=== PATIENT | male | born 1995 | race Caucasian/White ===

== ENCOUNTER → 2016-11-05 | Outpatient (CLI) | payer SELFPAY ==
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
== END ==
LOC: M ADAMS 11:43
PROVIDERS: ATTEND Physician Assistant Medical
DX: S70.02XA Contusion of left hip, initial encounter (principal); X58.XXXA Exposure to other specified factors, initial encounter; Y92.9 Unspecified place or not applicable

== ENCOUNTER 2019-09-21 01:52 | Emergency (ER) | payer BC ==
[~2019-09-21] VITALS: Ht 182.9 cm; Wt 129.6 kg
[2019-09-21 01:52] VITALS: BP 133/68
[2019-09-21 02:41] LABS: BASO # 0.1 10^3/uL (0.0-0.2); BASO % 0.3 % (0.0-1.0); EOS # 0.2 10^3/uL (0.0-0.5); EOS % 0.8 % (0.0-3.0); HEMATOCRIT 47.7 % (42.0-52.0); HEMOGLOBIN 15.8 g/dl (13.5-17.5); LYMPH # 3.2 10^3/uL (1.5-5.0); MEAN CORPUSCULAR HEMOGLOBIN 28.6 pg (27.0-33.0); MEAN CORPUSCULAR HGB CONC 33.1 g/dl (32.0-36.5); MEAN CORPUSCULAR VOLUME 86.3 fl (80.0-96.0); MONO # 1.4 10^3/uL (0.0-0.8); MONO % 7.3 % (0.0-5.0); NEUTROPHILS # 13.8 10^3/uL (1.5-8.5); PLATELET COUNT, AUTOMATED 300 10^3/uL (150-450); RED BLOOD COUNT 5.53 10^6/uL (4.30-6.10); WHITE BLOOD COUNT 18.6 10^3/uL (4.0-10.0)
[2019-09-21 02:45] LABS: INR 1.07; PROTHROMBIN TIME 13.6 SECONDS (11.8-14.0)
[2019-09-21] MEDS ORDERED: NS 1,000 ML IV ONE (02:45)
[2019-09-21] MEDS ORDERED: TETANUS/DIPHTHERIA TOX ADSORB ADULT 0.5ML SYR/VIAL (90714) IM ONE (02:45)
[2019-09-21] MEDS ORDERED: ceFAZolin SOD 1 GM in D5W MINI-BAG PLUS 50 ML IV ONE (02:45)
[2019-09-21] MEDS ORDERED: MORPHINE 4 MG/ML 1ML VIAL/SYRINGE (J2270) IV ONE (02:45)
[2019-09-21 02:46] LABS: PARTIAL THROMBOPLASTIN TIME 25.8 SECONDS (25.0-38.4)
[2019-09-21 02:55] LABS: BLOOD UREA NITROGEN 13 MG/DL (7-18); CALCIUM LEVEL 8.5 MG/DL (8.5-10.1); CARBON DIOXIDE LEVEL 24 MEQ/L (21-32); CHLORIDE LEVEL 108 MEQ/L (98-107); CREATININE FOR GFR 0.99 MG/DL (0.70-1.30); GLOMERULAR FILTRATION RATE > 60.0 (>60); GLUCOSE, FASTING 128 MG/DL (70-100); SODIUM LEVEL 140 MEQ/L (136-145)
[2019-09-21 02:56] LABS: ALBUMIN 3.9 GM/DL (3.2-5.2); ALT/SGPT 103 U/L (12-78); BILIRUBIN,DIRECT < 0.1 MG/DL (0.0-0.2); BILIRUBIN,TOTAL 0.6 MG/DL (0.2-1.0); LIPASE 174 U/L (73-393); TOTAL PROTEIN 7.8 GM/DL (6.4-8.2)
[2019-09-21] MEDS ORDERED: ISOVUE-370 76% 100ML VIAL As Ordered ONE (03:03)
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
--- NOTE | 2019-09-21 03:47 | REPVR ---
PROCEDURE INFORMATION: Exam: CT Cervical Spine Without Contrast Exam date and time: 09/21/2019 2:58 AM Age: 23 years old Clinical indication: Neck pain; Patient HX: Tamela knox; Additional info: [facility] TECHNIQUE: Imaging protocol: Computed tomography images of the cervical spine without contrast. Radiation optimization: All CT scans at this facility use at least one of these dose optimization techniques: automated exposure control; mA and/or kV adjustment per patient size (includes targeted exams where dose is matched to clinical indication); or iterative reconstruction. COMPARISON: DX SPINE LS COMPLETE 11/05/2016 11:44 AM FINDINGS: Vertebrae: Nonspecific straightening. Vertebral body height and AP alignment is preserved. No acute fracture. Discs/Spinal canal/Neural foramina: No definite significant central canal stenosis. Nondisplaced left 1st rib fracture. Soft tissues: Unremarkable. Lungs: Lung apices are normal. Pleural space: No visible pneumothorax. IMPRESSION: 1. No acute cervical spine fracture. 2. Nondisplaced left 1st rib fracture. Electronically signed by: Santi Paula On 09/21/2019 03:47:15 AM
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
--- NOTE | 2019-09-21 03:55 | REPVR ---
PROCEDURE INFORMATION: Exam: CT Abdomen And Pelvis With Contrast Exam date and time: 09/21/2019 2:58 AM Age: 23 years old Clinical indication: Abdominal pain; Generalized; Additional info: [facility] TECHNIQUE: Imaging protocol: Computed tomography of the abdomen and pelvis with intravenous contrast. Radiation optimization: All CT scans at this facility use at least one of these dose optimization techniques: automated exposure control; mA and/or kV adjustment per patient size (includes targeted exams where dose is matched to clinical indication); or iterative reconstruction. Contrast material: ISO; Contrast volume: 100 ml; Contrast route: AC; COMPARISON: DX HIP COMPLETE (AP/LAT) 11/05/2016 11:44 AM FINDINGS: Liver: Hepatomegaly and steatosis. Gallbladder and bile ducts: Normal. No calcified stones. No ductal dilation. Pancreas: Normal. No ductal dilation. Spleen: Normal. No splenomegaly. Adrenals: Normal. No mass. Kidneys and ureters: Normal. No hydronephrosis. Stomach and bowel: Unremarkable. No obstruction. No mucosal thickening. Appendix: No evidence of appendicitis. Intraperitoneal space: Unremarkable. No free air. No significant fluid collection. Vasculature: Unremarkable. No abdominal aortic aneurysm. Lymph nodes: Unremarkable. No enlarged lymph nodes. Bladder: Unremarkable as visualized. Reproductive: Unremarkable as visualized. Bones/joints: Mild degenerative changes in the bilateral sacroiliac joints. Soft tissues: Small fat containing umbilical hernia. Appearance of a soft tissue contusion along the left flank. IMPRESSION: Appearance of a soft tissue contusion along the left flank. No acute fractures or evidence of solid organ injuries. Electronically signed by: Phil Gates On 09/21/2019 03:55:18 AM
[2019-09-21] MEDS ORDERED: NORCO 5/325MG TABLET (BULK FOR ED) PO ONE (04:15)
== END 2019-09-21 04:40 | disposition home or self-care (01) ==
LOC: M ED 01:52
DX: S22.32XA Fracture of one rib, left side, initial encounter for closed fracture (principal); S42.002A Fracture of unspecified part of left clavicle, initial encounter for closed fracture; V86.55XA Driver of 3- or 4- wheeled all-terrain vehicle (ATV) injured in nontraffic accident, initial encounter; W55.89XA Other contact with other mammals, initial encounter; Y92.9 Unspecified place or not applicable; Y93.89 Activity, other specified; Y99.9 Unspecified external cause status
CPT/HCPCS: 70450; 71260; 72125; 74177; 80048; 80076; 83690; 85025; 85610; 85730; 90471; 90714; 96365; 96375; 99284; J0690; J2270; Q9967